=== PATIENT | male | born 1990 | race Caucasian/White ===

== ENCOUNTER 2017-09-09 15:01 | Emergency (ER) | payer SELFPAY ==
[~2017-09-09] VITALS: Ht 182.8 cm; Wt 99.8 kg
[~2017-09-09 15:01] MED LIST: ATARAX25 MG PO; BACTRIM DS 8001 TA1 PO; CIPRO500 MG PO; CLARITIN10 MG PO; CLEOCIN HCL150 MG PO; DAYPRO600 M1 PO; DOXYCYCLINE MO100 MG PO; KEFLEX500 MG PO; MOTRIN800 MG PO; NKHM; ROBAXIN750 MG PO; VICODIN 500 MG-1 TAB PO; ZITHROMAX Z PA250 MG PO
== END 2017-09-09 16:32 | disposition home or self-care (01) ==
LOC: ED 15:01
DX: G93.0 Cerebral cysts (principal); F17.200 Nicotine dependence, unspecified, uncomplicated

== ENCOUNTER 2018-06-11 23:39 | Emergency (ER) | payer SELFPAY ==
[~2018-06-11] VITALS: Ht 182.8 cm; Wt 88.5 kg
[2018-06-12] MEDS ORDERED: ACULAR 0.5%3 ML OPH (00:25)
== END 2018-06-12 00:20 | disposition home or self-care (01) ==
LOC: ED 23:39
DX: T15.01XA Foreign body in cornea, right eye, initial encounter (principal); Z23 Encounter for immunization; X58.XXXA Exposure to other specified factors, initial encounter; Y93.89 Activity, other specified; Y92.69 Other specified industrial and construction area as the place of occurrence of the external cause; Y99.8 Other external cause status

== ENCOUNTER 2018-09-03 09:37 | Emergency (ER) | payer SELFPAY ==
[~2018-09-03] VITALS: Ht 180.3 cm; Wt 83.9 kg
[~2018-09-03 09:37] MED LIST changes: +ACULAR 0.5%3 ML OPH
[2018-09-03] MEDS ORDERED: AMOXICILLIN500 M2 PO (11:12)
[2018-09-03] MEDS ORDERED: FLONASE ALLERG9.9 ML NAS (11:12)
== END 2018-09-03 11:17 | disposition home or self-care (01) ==
LOC: ED 09:37
DX: J01.90 Acute sinusitis, unspecified (principal)

== ENCOUNTER 2020-07-28 22:10 | Emergency (ER) | payer OTHER ==
[~2020-07-28] VITALS: Ht 180.3 cm; Wt 88.5 kg
[~2020-07-28 22:10] MED LIST changes: +AMOXICILLIN500 M2 PO; +FLONASE ALLERG9.9 ML NAS
== END 2020-07-28 22:50 | disposition home or self-care (01) ==
LOC: ED 22:10
DX: L02.411 Cutaneous abscess of right axilla (principal)

== ENCOUNTER 2020-10-10 05:07 | Emergency (ER) | payer OTHER | END 2020-10-10 06:13 | disposition home or self-care (01) | LOC: ED 05:07 | DX: S61.211A Laceration without foreign body of left index finger without damage to nail, initial encounter (principal); F17.200 Nicotine dependence, unspecified, uncomplicated; W26.8XXA Contact with other sharp object(s), not elsewhere classified, initial encounter; Y93.89 Activity, other specified; Y92.89 Other specified places as the place of occurrence of the external cause; Y99.8 Other external cause status ==

== ENCOUNTER 2020-12-27 22:31 | Emergency (ER) | payer OTHER ==
[~2020-12-27] VITALS: Ht 180.3 cm; Wt 95.3 kg
== END 2020-12-27 23:40 | disposition home or self-care (01) ==
LOC: ED 22:31
DX: S05.01XA Injury of conjunctiva and corneal abrasion without foreign body, right eye, initial encounter (principal); W19.XXXA Unspecified fall, initial encounter; Y93.89 Activity, other specified; Y92.89 Other specified places as the place of occurrence of the external cause; Y99.8 Other external cause status

== ENCOUNTER 2021-10-06 20:09 | Emergency (ER) | payer OTHER ==
[2021-10-06 21:21] LABS: BASO % 0.3 % (0.0-1.0); EOS # 0.1 10*3/uL (0.0-0.4); EOS % 1.3 % (1.0-4.0); HEMATOCRIT 47.3 % (42.0-52.0); LYMPH # 0.7 10*3/uL (1.3-4.4); LYMPH % 6.6 % (27.0-41.0); MEAN CELL VOLUME 86.2 fl (80.0-94.0); MEAN CORPUSCULAR HGB CONC 33.6 g/dl (33.0-37.0); MEAN PLATELET VOLUME 10.3 fl (9.6-12.3); MONO # 0.6 10*3/uL (0.1-1.0); MONO % 5.3 % (3.0-9.0); NEUT # 9.2 10*3/uL (2.3-7.9); NEUT % 86.1 % (47.0-73.0); PLATELET COUNT AUTOMATED 219 10*3/uL (130-400); RED BLOOD COUNT 5.49 10*6/uL (4.50-5.90); RED CELL DISTRI WIDTH 12.8 % (0-14.5); WHITE BLOOD COUNT 10.7 10*3/uL (4.8-10.8)
[2021-10-06 21:36] LABS: ALKALINE PHOSPHATASE 100 U/L (45-117); BUN 21 mg/dl (7-24); CHLORIDE 109 mmol/L (98-107); CREATININE 0.91 mg/dL (0.70-1.30); POTASSIUM 3.7 mmol/L (3.5-5.1); SGOT/AST 15 IU/L (3-35); SGPT/ALT 18 U/L (12-78); SODIUM 137 mmol/L (136-145); TOTAL PROTEIN 7.2 gm/dL (6.4-8.2)
[2021-10-06 21:40] LABS: ETHYL ALCOHOL < 3.0 mg/dl (<3)
== END 2021-10-06 21:30 | disposition short-term general hospital (02) ==
LOC: ED 20:09
PROVIDERS: Nurse Practitioner
DX: R10.2 Pelvic and perineal pain (principal); M54.2 Cervicalgia; R51.9 Headache, unspecified; M54.50 Low back pain, unspecified; M79.605 Pain in left leg; M25.552 Pain in left hip; M25.512 Pain in left shoulder; F17.200 Nicotine dependence, unspecified, uncomplicated; V49.49XA Driver injured in collision with other motor vehicles in traffic accident, initial encounter; Y93.89 Activity, other specified; Y92.89 Other specified places as the place of occurrence of the external cause; Y99.8 Other external cause status

== ENCOUNTER 2022-04-30 13:42 | Emergency (ER) | payer OTHER ==
[~2022-04-30] VITALS: Ht 180.3 cm; Wt 86.2 kg
[2022-04-30 14:24] LABS: BASO # 0.1 10*3/uL (0.0-0.1); BASO % 0.5 % (0.0-1.0); EOS # 0.1 10*3/uL (0.0-0.4); EOS % 0.9 % (1.0-4.0); HEMATOCRIT 46.2 % (42.0-52.0); LYMPH # 1.8 10*3/uL (1.3-4.4); LYMPH % 15.9 % (27.0-41.0); MEAN CELL VOLUME 89.4 fl (80.0-94.0); MEAN CORPUSCULAR HGB 29.6 pg (27.0-31.0); MEAN CORPUSCULAR HGB CONC 33.1 g/dl (33.0-37.0); MONO # 0.7 10*3/uL (0.1-1.0); MONO % 6.1 % (3.0-9.0); NEUT # 8.4 10*3/uL (2.3-7.9); NEUT % 76.2 % (47.0-73.0); PLATELET COUNT AUTOMATED 215 10*3/uL (130-400); RED BLOOD COUNT 5.17 10*6/uL (4.50-5.90)
[2022-04-30 14:37] LABS: BILIRUBIN 1+ (Negative); BLOOD 3+ (Negative); CLARITY Cloudy (Clear); GLUCOSE Negative (Negative); KETONE 1+ (Negative); LEUKO ESTERASE 1+ (Negative); NITRITE Negative (Negative); SPECIFIC GRAVITY >= 1.030 (1.001-1.030)
[2022-04-30 14:40] LABS: ALKALINE PHOSPHATASE 99 U/L (45-117); BUN 18 mg/dl (7-24); CHLORIDE 110 mmol/L (98-107); CREATININE 1.26 mg/dL (0.70-1.30); LIPASE 77 U/L (73-393); POTASSIUM 3.8 mmol/L (3.5-5.1); SGOT/AST 20 IU/L (3-35); SGPT/ALT 21 U/L (12-78); SODIUM 141 mmol/L (136-145); TOTAL PROTEIN 7.2 gm/dL (6.4-8.2)
[2022-04-30 14:51] LABS: COLOR Dark Yellow (Yellow)
[2022-04-30 14:56] LABS: BACTERIA 1+; MUCOUS 2+; RBC 41-50 rbc/hpf (0-2)
[2022-04-30] MEDS ORDERED: FLOMAX0.4 MG PO (17:28)
[2022-04-30] MEDS ORDERED: Motrin,Rufen800 MG PO (17:28)
[2022-04-30] MEDS ORDERED: ONDANSETRON4 MG SL (17:28)
[2022-04-30] MEDS ORDERED: PERCOCET 5-3251 EACH PO (17:28)
== END 2022-04-30 18:18 | disposition home or self-care (01) ==
LOC: ED 13:42
PROVIDERS: Emergency Medicine
DX: N20.1 Calculus of ureter (principal)